=== PATIENT | female | born 1975 | race Caucasian/White ===

== ENCOUNTER → 2016-07-04 | Outpatient (CLI) | payer BC ==
[~2016-07-04] MED LIST: ADDERALL20 MG PO; CELEBREX50 MG PO; DESYREL DIVIDO150 M1 PO; MULTIVITAMIN1 SGL PO; NUVARING VAG RING VG; NUVARING VAGIN1 EACH VG; ORPHENADRINE C100 MG PO; PRILOSEC 20MG20 MG PO; RELION VEN0.09 MG/Ac; ULTRAM50 M1 PO
== END ==
LOC: LAB 09:07
DX: Z01.812 Encounter for preprocedural laboratory examination (principal)

== ENCOUNTER → 2016-07-09 | Outpatient (CLI) | payer BC ==
[2016-07-09 09:14] VITALS: BP 107/76
== END ==
LOC: LAB 08:35
DX: Z01.811 Encounter for preprocedural respiratory examination (principal); N39.0 Urinary tract infection, site not specified

== ENCOUNTER → 2016-07-16 | Outpatient (CLI) | payer BC | LOC: LAB 08:23 | DX: N39.0 Urinary tract infection, site not specified (principal) ==

== ENCOUNTER → 2016-07-17 | Outpatient (CLI) | payer BC | LOC: MAMMO 14:16 | DX: Z12.31 Encounter for screening mammogram for malignant neoplasm of breast (principal) | CPT/HCPCS: G0202 ==

== ENCOUNTER → 2017-06-22 | Outpatient (CLI) | payer BC ==
[2016-07-09 09:14] VITALS: BP 107/76
[2017-06-26 21:26] LABS: ANA SCREEN with REFLEX Positive (Negative)
== END ==
LOC: LAB 11:59
PROVIDERS: Family Medicine
DX: M13.80 Other specified arthritis, unspecified site (principal); Z88.1 Allergy status to other antibiotic agents

== ENCOUNTER → 2017-06-27 | Outpatient (CLI) | payer BC ==
[2016-07-09 09:14] VITALS: BP 107/76
[2017-06-27 11:04] LABS: HEMATOCRIT 39.2 % (37.0-47.0); RED BLOOD COUNT 4.14 M/mm3 (4.10-5.30); RED CELL DISTRIBUTION WIDTH 12.1 % (11.5-14.5); WHITE BLOOD COUNT 5.7 K/mm3 (4.8-10.8)
[2017-06-27 11:19] LABS: ALBUMIN 3.5 g/dL (3.5-5.0); BUN/CREATININE RATIO 26.1 (6.0-26.0); CALCIUM 8.8 mg/dL (8.4-10.2); POTASSIUM 4.3 mmol/L (3.6-5.0); TOTAL BILIRUBIN 0.5 mg/dL (0.2-1.3); TOTAL PROTEIN 6.2 g/dL (6.3-8.2)
[2017-06-27 11:36] LABS: URINE APPEARANCE CLEAR; URINE COLOR YELLOW
[2017-06-27 11:39] LABS: URINE BILIRUBIN NEGATIVE (NEGATIVE); URINE BLOOD NEGATIVE (NEGATIVE); URINE GLUCOSE NEGATIVE (NEGATIVE); URINE KETONE NEGATIVE (NEGATIVE); URINE LEUKOCYTE ESTERASE NEGATIVE (NEGATIVE); URINE NITRATE POSITIVE (NEGATIVE); URINE PROTEIN(semi-quant) NEGATIVE (NEGATIVE); URINE UROBILINOGEN NORMAL (NORMAL)
== END ==
LOC: LAB 10:33
PROVIDERS: Family Medicine
DX: R82.90 Unspecified abnormal findings in urine (principal)

== ENCOUNTER → 2019-01-17 | Outpatient (CLI) | payer BC ==
[2016-07-09 09:14] VITALS: BP 107/76
[2019-01-17 10:46] LABS: CLUE CELLS NOT OBSERVED (Not Observd)
== END ==
LOC: LAB 10:03
PROVIDERS: Nurse Practitioner
DX: N89.8 Other specified noninflammatory disorders of vagina (principal)
CPT/HCPCS: Q0111

== ENCOUNTER → 2020-01-12 | Outpatient (CLI) | payer BC ==
[2016-07-09 09:14] VITALS: BP 107/76
== END ==
LOC: LAB 08:52
DX: J02.9 Acute pharyngitis, unspecified (principal); M79.10 Myalgia, unspecified site; R06.00 Dyspnea, unspecified; R06.02 Shortness of breath; Z20.828 Contact with and (suspected) exposure to other viral communicable diseases

== ENCOUNTER → 2020-04-08 | Outpatient (CLI) | payer BC ==
[2016-07-09 09:14] VITALS: BP 107/76
[2020-04-08 16:34] LABS: HEMATOCRIT 39.9 % (37.0-47.0); HEMOGLOBIN 13.1 g/dL (12.5-16.0); MEAN PLATELET VOLUME 9.1 fl (7.4-10.4); RED BLOOD COUNT 4.23 M/mm3 (4.10-5.30); RED CELL DISTRIBUTION WIDTH 12.9 % (11.5-14.5); WHITE BLOOD COUNT 8.5 K/mm3 (4.8-10.8)
[2020-04-08 16:41] LABS: POTASSIUM 4.2 mmol/L (3.5-5.1)
[2020-04-08 16:42] LABS: CALCIUM 8.8 mg/dL (8.3-10.5)
[2020-04-08 16:43] LABS: TOTAL PROTEIN 6.3 g/dL (6.4-8.3)
[2020-04-08 16:45] LABS: TOTAL BILIRUBIN 0.5 mg/dL (0.2-1.2)
== END ==
LOC: LAB 16:19
PROVIDERS: Family Medicine
DX: F41.9 Anxiety disorder, unspecified (principal); F98.8 Other specified behavioral and emotional disorders with onset usually occurring in childhood and adolescence

== ENCOUNTER → 2021-02-10 | Outpatient (CLI) | payer BC ==
[2021-02-13 13:43] LABS: AFFIRM VAGINITIS PANEL RESULTS AMS
== END ==
LOC: LAB 13:26
PROVIDERS: Nurse Practitioner
DX: N89.8 Other specified noninflammatory disorders of vagina (principal)

== ENCOUNTER → 2021-06-26 | Outpatient (CLI) | payer BC | LOC: LAB 10:38 | DX: R30.9 Painful micturition, unspecified (principal) ==

== ENCOUNTER → 2021-06-30 | Outpatient (CLI) | payer BC ==
[~2021-06-30] VITALS: Ht 165.1 cm; Wt 62.7 kg
[2021-06-30 11:07] VITALS: BP 114/79
== END ==
LOC: AMSURD 11:00
DX: N39.0 Urinary tract infection, site not specified (principal)
CPT/HCPCS: J0696

== ENCOUNTER → 2021-07-21 | Outpatient (CLI) | payer BC ==
[2021-07-21 11:05] LABS: HEMATOCRIT 43.3 % (37.0-47.0); HEMOGLOBIN 14.1 g/dL (12.5-16.0); MEAN PLATELET VOLUME 9.3 fl (7.4-10.4); RED BLOOD COUNT 4.53 M/mm3 (4.10-5.30); RED CELL DISTRIBUTION WIDTH 12.4 % (11.5-14.5); WHITE BLOOD COUNT 5.4 K/mm3 (4.8-10.8)
[2021-07-21 11:10] LABS: POTASSIUM 4.2 mmol/L (3.5-5.1)
[2021-07-21 11:11] LABS: ALBUMIN 4.6 g/dL (3.5-5.0)
[2021-07-21 11:12] LABS: CALCIUM 9.6 mg/dL (8.3-10.5)
[2021-07-21 11:13] LABS: TOTAL PROTEIN 8.1 g/dL (6.4-8.3)
[2021-07-21 11:15] LABS: TOTAL BILIRUBIN 0.6 mg/dL (0.2-1.2)
== END ==
LOC: LAB 10:12
PROVIDERS: Family Medicine
DX: Z00.00 Encounter for general adult medical examination without abnormal findings (principal); I73.00 Raynaud's syndrome without gangrene

== ENCOUNTER → 2022-01-13 | Outpatient (CLI) | payer BC ==
[2022-01-13 13:58] LABS: CLUE CELLS OBSERVED (Not Observd)
== END ==
LOC: LAB 13:23
PROVIDERS: Nurse Practitioner Family
DX: R39.15 Urgency of urination (principal); R35.0 Frequency of micturition; Z20.2 Contact with and (suspected) exposure to infections with a predominantly sexual mode of transmission
CPT/HCPCS: Q0111

== ENCOUNTER → 2024-01-28 | Outpatient (CLI) | payer BC ==
[~2024-01-28] MED LIST changes: +CLONIDINE HYDR0.1 MG PO; +LEXAPRO5 MG PO; +PROGESTERONE200 MG PO; +VENLAFAXINE37.5 MG PO
== END ==
LOC: RAD 08:22
DX: M43.16 Spondylolisthesis, lumbar region (principal); M47.816 Spondylosis without myelopathy or radiculopathy, lumbar region; M48.061 Spinal stenosis, lumbar region without neurogenic claudication; M47.817 Spondylosis without myelopathy or radiculopathy, lumbosacral region; M51.37 Other intervertebral disc degeneration, lumbosacral region; M48.07 Spinal stenosis, lumbosacral region

== ENCOUNTER 2024-06-02 08:00 | Outpatient (RCR) | payer BC | END 2024-06-30 | LOC: PT | DX: M54.50 Low back pain, unspecified (principal); Z98.890 Other specified postprocedural states ==